=== PATIENT | female | born 1990 | race Caucasian/White ===

== ENCOUNTER 2018-10-28 08:49 | Day surgery (SDC) | payer MEDICAID ==
[~2018-10-28] VITALS: Ht 170.2 cm; Wt 122.5 kg
[2018-10-28] MEDS ORDERED: BUPIVACAINE /PF 0.25% 30 ML VIAL INJ ONE (08:50)
[2018-10-28] MEDS ORDERED: LIDOCAINE 2%, 20 ML MDV INJ ONE (08:50)
[2018-10-28] MEDS ORDERED: methylPREDNISolone ACETATE 40 MG/ML IM ONE (08:50)
[2018-10-28] MEDS ORDERED: IOPAMIDOL 50 ML VIAL IV ONE (08:50)
[2018-10-28 09:01] LABS: HCG,QUAL RESULT NEGATIVE (NEGATIVE)
[2018-10-28] MEDS ORDERED: MIDAZOLAM HCL 5 MG/5 ML VIAL ONE (09:47)
[2018-10-28] MEDS ORDERED: DIPHENHYDRAMINE INJ 50 MG/ML VIAL ONE (09:48)
[2018-10-28 10:42] VITALS: BP_SYST 132
== END 2018-10-28 11:16 | disposition home or self-care (01) ==
LOC: SDS 08:49 → SMU 08:49 → SDS 11:16
PROVIDERS: ATTEND Internal Medicine
DX: M51.16 Intervertebral disc disorders with radiculopathy, lumbar region (principal); M54.5 Low back pain; E78.5 Hyperlipidemia, unspecified; D64.9 Anemia, unspecified; J45.909 Unspecified asthma, uncomplicated; Z98.890 Other specified postprocedural states; Z87.891 Personal history of nicotine dependence; M79.10 Myalgia, unspecified site; I10 Essential (primary) hypertension
CPT/HCPCS: 62323; 84703; J1030; J1200; J2001; J2250; J3490; Q9967; 76000

== ENCOUNTER 2019-06-02 08:39 | Day surgery (SDC) | payer MEDICAID ==
[~2019-06-02] VITALS: Ht 170.2 cm; Wt 130.2 kg
[~2019-06-02 08:39] MED LIST: BUPIVACAINE /PF 0.25% 30 ML VIAL INJ ONE; IOHEXOL 300 mgI/mL, 50 mL INFUS..BTL IV ONE; LIDOCAINE 2%, 20 ML MDV ONE; methylPREDNISolone ACETATE 40 MG/ML ONE
[2019-06-02 09:38] LABS: HCG,QUAL RESULT NEGATIVE (NEGATIVE)
[2019-06-02] MEDS ORDERED: DIPHENHYDRAMINE INJ 50 MG/ML VIAL ONE (09:49)
[2019-06-02] MEDS ORDERED: MIDAZOLAM HCL 5 MG/5 ML VIAL ONE (09:49)
[2019-06-02 12:56] VITALS: BP_SYST 122
== END 2019-06-02 11:25 | disposition home or self-care (01) ==
LOC: SDS 08:39
PROVIDERS: ATTEND Internal Medicine
DX: M51.9 Unspecified thoracic, thoracolumbar and lumbosacral intervertebral disc disorder (principal); M47.26 Other spondylosis with radiculopathy, lumbar region; M54.2 Cervicalgia; M54.5 Low back pain; G89.4 Chronic pain syndrome; I10 Essential (primary) hypertension; Z91.010 Allergy to peanuts; Z91.018 Allergy to other foods; F17.200 Nicotine dependence, unspecified, uncomplicated
CPT/HCPCS: 62323; 84703; J1030; J2001; J2250; J3490; J7120; Q9967; 76000; J1200

== ENCOUNTER 2019-09-18 07:46 | Day surgery (SDC) | payer MEDICAID ==
[~2019-09-18] VITALS: Ht 170.2 cm; Wt 123.8 kg
[2019-09-18] MEDS ORDERED: LIDOCAINE 2%, 20 ML MDV INJ ONE (07:47)
[2019-09-18] MEDS ORDERED: BUPIVACAINE /PF 0.25% 30 ML VIAL INJ ONE (07:47)
[2019-09-18] MEDS ORDERED: methylPREDNISolone ACETATE 40 MG/ML IM ONE (07:47)
[2019-09-18] MEDS ORDERED: DEXAMETHASONE SOD PHOSPHATE 4 MG/ML VIAL IVP ONE (07:47)
[2019-09-18] MEDS ORDERED: IOPAMIDOL 50 ML VIAL IV ONE (07:47)
[2019-09-18 08:14] LABS: HCG,QUAL RESULT NEGATIVE (NEGATIVE)
[2019-09-18] MEDS: MIDAZOLAM HCL 5 MG/5 ML VIAL ONE ×2 (09:45→09:51)
[2019-09-18] MEDS: DIPHENHYDRAMINE INJ 50 MG/ML VIAL ONE ×2 (09:48→09:54)
[2019-09-18 10:46] VITALS: BP_SYST 121
== END 2019-09-18 10:30 | disposition home or self-care (01) ==
LOC: SDS 07:46 → SMU 07:49 → SDS 10:30
PROVIDERS: ATTEND Internal Medicine
DX: M51.16 Intervertebral disc disorders with radiculopathy, lumbar region (principal); M47.26 Other spondylosis with radiculopathy, lumbar region; G89.4 Chronic pain syndrome; I10 Essential (primary) hypertension; E78.5 Hyperlipidemia, unspecified; J45.909 Unspecified asthma, uncomplicated; M54.2 Cervicalgia; E66.9 Obesity, unspecified; Z79.899 Other long term (current) drug therapy
CPT/HCPCS: 64483; 84703; J1030; J1100; J1200; J2001; J2250; J3490; J7120; Q9967; 76000

== ENCOUNTER 2023-10-02 06:10 | Day surgery (SDC) | payer MEDICAID ==
[~2023-10-02] VITALS: Ht 167.6 cm; Wt 147.4 kg
[2023-10-02 09:51] VITALS: O2SAT 97
[2023-10-02] MEDS ORDERED: PROPOFOL 200MG/ 20ML VIAL (DIPRIVAN) IV ONE (10:00)
[2023-10-02 10:48] VITALS: BP_SYST 130; PULSE 97; RESP 16; TEMP 97.3
== END 2023-10-02 09:00 | disposition home or self-care (01) ==
LOC: SDS 06:10 → SMU 06:11 → SDS 09:00
PROVIDERS: ATTEND Student in an Organized Health Care Education/Training Program
DX: K31.7 Polyp of stomach and duodenum (principal); D13.2 Benign neoplasm of duodenum; K29.50 Unspecified chronic gastritis without bleeding; B96.81 Helicobacter pylori [H. pylori] as the cause of diseases classified elsewhere; J45.909 Unspecified asthma, uncomplicated; G47.33 Obstructive sleep apnea (adult) (pediatric); E66.01 Morbid (severe) obesity due to excess calories; F32.A Depression, unspecified; Z87.891 Personal history of nicotine dependence; Z86.010 Personal history of colon polyps; Z90.710 Acquired absence of both cervix and uterus; Z91.013 Allergy to seafood; Z91.030 Bee allergy status; Z68.43 Body mass index [BMI] 50.0-59.9, adult; Z79.899 Other long term (current) drug therapy
CPT/HCPCS: 43251; 88305; 88312; 88313; 43239; G0378; J2704

== ENCOUNTER 2024-01-25 07:34 | Day surgery (SDC) | payer MEDICAID ==
[~2024-01-25] VITALS: Ht 167.6 cm; Wt 154.7 kg
[2024-01-25] MEDS ORDERED: SIMETHICONE 40 MG/0.6 ML ML ONE (08:14)
[2024-01-25] MEDS ORDERED: BENZOCAINE 20% 0.5mL UD SPRAY MM ONE (08:14)
[2024-01-25] MEDS ORDERED: LR 1,000 ML IV SCH (08:15)
[2024-01-25] MEDS ORDERED: ONDANSETRON HCL 4 MG/2 ML VIAL IVP PRN (08:15)
[2024-01-25] MEDS ORDERED: MORPHINE 4 MG INJ. 4 MG/ML VIAL IVP PRN (08:15)
[2024-01-25] MEDS ORDERED: LIDOCAINE MPF 2% 20 MG/1 ML, 5 ML VIAL INH ONE (08:31)
[2024-01-25 12:19] VITALS: BP_SYST 102; PULSE 93; RESP 24; TEMP 97.6; O2SAT 96
== END 2024-01-25 10:33 | disposition home or self-care (01) ==
LOC: SDS 07:34 → SMU 07:36 → SDS 10:33
PROVIDERS: ATTEND Student in an Organized Health Care Education/Training Program
DX: D13.91 Familial adenomatous polyposis (principal); D13.2 Benign neoplasm of duodenum; K31.A19 Gastric intestinal metaplasia without dysplasia, unspecified site; K29.70 Gastritis, unspecified, without bleeding; J45.909 Unspecified asthma, uncomplicated; E66.01 Morbid (severe) obesity due to excess calories; Z91.013 Allergy to seafood; Z91.010 Allergy to peanuts; Z90.710 Acquired absence of both cervix and uterus; Z68.43 Body mass index [BMI] 50.0-59.9, adult; Z85.038 Personal history of other malignant neoplasm of large intestine
CPT/HCPCS: 43251; 88305; 88313; G0378; J3465; J2704; J3010; J7120